=== PATIENT | female | born 2000 | race Caucasian/White ===

== ENCOUNTER 2020-08-09 23:23 | Inpatient (IN) | payer OTHER ==
[2020-08-10] MEDS ORDERED: BUTORPHANOL TARTRATE 1 MG/ML VIAL IVPUSH ONE (00:18)
[2020-08-10] MEDS ORDERED: PROMETHAZINE HCL 25 MG/1 ML VIAL IVPUSH ONE (00:18)
[2020-08-10] MEDS ORDERED: DEXTROSE 5%-LACTATED RINGERS 1,000 ML IV SCH (00:30)
[2020-08-10 00:48] LABS: BASO % 0.7 % (0-2.0); HEMATOCRIT 40.5 % (32.4-45.2); HEMOGLOBIN 13.6 GM/dL (10.7-15.3); LYMPH % 33.3 % (8-40); MCH 30.8 pg (25.7-33.7); MCHC 33.6 g/dl (32.0-36.0); MEAN CELL VOLUME 91.6 fl (80-96); MONO % 6.6 % (3.8-10.2); NEUT % 58.4 % (42.8-82.8); PLATELET COUNT 309 K/MM3 (134-434); RBC 4.42 M/mm3 (3.60-5.2); RDW 13.1 % (11.6-15.6); WHITE BLOOD COUNT 10.9 K/mm3 (4.0-10.0)
[2020-08-10 00:53] LABS: INR 0.93 (0.83-1.09); PROTHROMBIN TIME (PATIENT) 11.5 SEC (9.7-13.0)
[2020-08-10 00:55] LABS: ACTIVATED PTT 26.2 SECONDS (25.2-36.5)
[2020-08-10 00:56] VITALS: BMI 23.1
[2020-08-10 01:07] LABS: BLOOD UREA NITROGEN 8.7 mg/dL (7-18); CALCIUM 8.8 mg/dL (8.5-10.1)
[2020-08-10 01:11] LABS: CREATININE 0.8 mg/dL (0.55-1.3)
[2020-08-10] MEDS ORDERED: PROMETHAZINE HCL 25 MG/1 ML VIAL ONE (02:43)
[2020-08-10] MEDS ORDERED: BUTORPHANOL TARTRATE 1 MG/ML VIAL ONE ×2 (02:43)
[2020-08-10] MEDS ORDERED: PCA PUMP NR ONE (04:34)
[2020-08-10] MEDS ORDERED: OXYTOCIN 20 UNITS in 0.9% NS 20 UNIT/1,000 ML INFUS.BAG IV ONE ×2 (05:16→06:49)
[2020-08-10] MEDS ORDERED: LIDOCAINE HCL 1% PRESERVATIVE FREE - 30ML VIAL ONE ×2 (05:19→05:43)
[2020-08-10] MEDS ORDERED: BENZOCAINE 28 GM HEMORRHOIDAL OINTMENT TP PRN (06:02)
[2020-08-10] MEDS ORDERED: BENZOCAINE 20% 57 GM BOTTLE TP PRN (06:02)
[2020-08-10] MEDS ORDERED: WITCH HAZEL 50% (TUCKS) 40 PAD/JAR PAD TP PRN (06:02)
[2020-08-10] MEDS ORDERED: METHYLERGONOVINE MALEATE 0.2 MG/1 ML AMP IM PRN (06:02)
[2020-08-10] MEDS ORDERED: BISACODYL 10 MG SUPP.RECT RC PRN (06:02)
[2020-08-10] MEDS ORDERED: OXYTOCIN 20 UNITS in 0.9% NS 20 UNIT/1,000 ML INFUS.BAG IV SCH (06:15)
[2020-08-10] MEDS: FERROUS SO4 325 MG TABLET (FP) PO SCH ×2 (10:31→17:29)
[2020-08-10] MEDS: PRENATAL VITAMINS W/ FOLIC ACID TABLET (FP) PO SCH (10:31)
[2020-08-10] MEDS: IBUPROFEN 600 MG TABLET (FP) PO PRN (17:40)
[2020-08-10] MEDS: ACETAMINOPHEN 325 MG TABLET (FP) PO PRN (17:41)
[2020-08-11 07:07] LABS: BASO % 0.6 % (0-2.0); EOS % 1.8 % (0-4.5); HEMATOCRIT 38.7 % (32.4-45.2); HEMOGLOBIN 13.1 GM/dL (10.7-15.3); MCH 31.2 pg (25.7-33.7); MEAN CELL VOLUME 91.8 fl (80-96); MEAN PLT VOLUME 8.8 fl (7.5-11.1); MONO % 5.9 % (3.8-10.2); NEUT % 63.7 % (42.8-82.8); PLATELET COUNT 304 K/MM3 (134-434); RBC 4.22 M/mm3 (3.60-5.2); RDW 13.8 % (11.6-15.6); WHITE BLOOD COUNT 17.1 K/mm3 (4.0-10.0)
[2020-08-11] MEDS: ACETAMINOPHEN 325 MG TABLET (FP) PO PRN (09:56)
[2020-08-11] MEDS: PRENATAL VITAMINS W/ FOLIC ACID TABLET (FP) PO SCH (09:56)
[2020-08-11] MEDS: FERROUS SO4 325 MG TABLET (FP) PO SCH ×2 (09:56→16:57)
[2020-08-11] MEDS: IBUPROFEN 600 MG TABLET (FP) PO PRN (09:57)
[2020-08-11] MEDS ORDERED: FLU VACCINE (FLULAVAL) PF 60 MCG/0.5 ML SYRINGE 2020-2021 IM ONE (10:00)
[2020-08-11] MEDS ORDERED: DIPHTH,PERTUSS(ACELL),TET 0.5 ML DISP.SYRIN IM ONE (10:00)
[2020-08-11] MEDS ORDERED: SENNOSIDES/DOCUSATE COMBO (SENNA PLUS) TABLET (UD) PO PRN (22:00)
[2020-08-12] MEDS: PRENATAL VITAMINS W/ FOLIC ACID TABLET (FP) PO SCH (09:40)
[2020-08-12] MEDS: FERROUS SO4 325 MG TABLET (FP) PO SCH (09:40)
[2020-08-12 11:06] VITALS: BP 113/68; PULSE 78; TEMP 98.2
== END 2020-08-12 10:55 | disposition home or self-care (01) | DRG 560 ==
LOC: JDEL 23:23 → JLDR 23:33 → J3W 08-10 07:40
PROVIDERS: ADMIT Obstetrics & Gynecology; ATTEND Obstetrics & Gynecology
PROC: 10E0XZZ Delivery of Products of Conception, External Approach (ICD-10-PCS; principal; 2020-08-10)
PROC: 0W8NXZZ Division of Female Perineum, External Approach (ICD-10-PCS; 2020-08-10)
PROC: 0HQ9XZZ Repair Perineum Skin, External Approach (ICD-10-PCS; 2020-08-10)
DX: O48.0 Post-term pregnancy (principal); O70.0 First degree perineal laceration during delivery; Z3A.40 40 weeks gestation of pregnancy; Z37.0 Single live birth
CPT/HCPCS: 36415; 59025; 59409; 80048; 85025; 85610; 85730; 86780; 86850; 86900; 86901; 90715; C9803; G0008; Q2036; U0003; U0005